=== PATIENT | male | born 1980 | race Caucasian/White ===

== ENCOUNTER → 2017-12-22 | Outpatient (CLI) | payer OTHER | LOC: M RAD 13:14 | DX: H93.12 Tinnitus, left ear (principal); H90.42 Sensorineural hearing loss, unilateral, left ear, with unrestricted hearing on the contralateral side ==

== ENCOUNTER → 2018-01-16 | Outpatient (CLI) | payer OTHER | LOC: M RAD 12:44 | DX: H93.12 Tinnitus, left ear (principal); H90.42 Sensorineural hearing loss, unilateral, left ear, with unrestricted hearing on the contralateral side; M17.11 Unilateral primary osteoarthritis, right knee | CPT/HCPCS: 70551 ==

== ENCOUNTER → 2018-02-03 | Outpatient (REF) | payer OTHER ==
[2018-02-03 17:54] LABS: APPEARANCE, BODY FLUID CLOUDY (CLEAR); CRYSTALS, BODY FLUID NONE SEEN (NONE SEEN); SOURCE, BODY FLUID RT KNEE; SOURCE, BODY FLUID CRYSTALS RT KNEE; SYNOVIAL FLUID COLOR YELLOW (YELLOW)
[2018-02-03 18:18] LABS: BF MONONUCLEAR CELL % 73.5 % (0-0); BF POLYMORPHONUCLEAR CELL % 26.5 % (0-0); RBC BODY FLUID < 2 10^3/uL (<2); WBC BODY FLUID 219 /uL (0-10)
[2018-02-03 18:19] LABS: BF DIFF IF INDICATED? YES (NO)
[2018-02-03 19:38] LABS: SOURCE, BODY FLUID GLUCOSE RT KNEE; SOURCE, BODY FLUID URIC ACID RT KNEE; URIC ACID, BODY FLUID 4.8 MG/DL (NOT ESTABLISHED)
[2018-02-04 11:08] LABS: BODY FLUID RHEUMATOID SCREEN NEGATIVE (NEGATIVE)
[2018-02-04 11:09] LABS: MUCIN CLOT TEST 4+ (4+)
[2018-02-08 09:18] LABS: LYME PCR FOR BODY FLUID Negative (Negative)
== END ==
LOC: M LAB REF 17:16
DX: M25.561 Pain in right knee (principal)
CPT/HCPCS: 82945

== ENCOUNTER 2018-02-11 12:30 | Emergency (ER) | payer OTHER ==
[2018-02-11] MEDS ORDERED: PANTOPRAZOLE 40MG INJ (PROTONIX) (C9113) IV (14:15)
[2018-02-11] MEDS ORDERED: KETOROLAC 30 MG/ML VIAL (J1885) IV (14:15)
[2018-02-11] MEDS ORDERED: NS 1,000 ML IV (14:15)
[2018-02-11 15:33] LABS: BASO % 0.5 % (0.0-1.0); EOS # 0.2 10^3/uL (0.0-0.50); EOS % 2.1 % (0.0-3.0); HEMATOCRIT 42.6 % (42.0-52.0); HEMOGLOBIN 14.8 g/dl (13.5-17.5); IMMATURE GRANULOCYTE % 0.2 % (0-3.0); LYMPH # 3.1 10^3/uL (1.5-4.5); LYMPH % 37.5 % (24.0-44.0); MEAN CORPUSCULAR HEMOGLOBIN 32.2 pg (27.0-33.0); MEAN CORPUSCULAR HGB CONC 34.7 g/dl (32.0-36.5); MEAN CORPUSCULAR VOLUME 92.6 fl (80.0-96.0); MONO # 0.5 10^3/uL (0.0-0.8); MONO % 5.6 % (0.0-5.0); NEUTROPHILS # 4.4 10^3/uL (1.8-7.7); NEUTROPHILS % 54.1 % (36.0-66.0); PLATELET COUNT, AUTOMATED 360 10^3/uL (150-450); RED CELL DISTRIBUTION WIDTH 11.4 % (11.5-14.5); WHITE BLOOD COUNT 8.2 10^3/uL (4.0-10.0)
[2018-02-11 15:44] LABS: PROTHROMBIN TIME 13.3 SECONDS (12.1-14.4)
[2018-02-11 15:53] LABS: ALBUMIN 4.5 GM/DL (3.2-5.2); ALBUMIN/GLOBULIN RATIO 1.36 (1.00-1.93); ALKALINE PHOSPHATASE 66 U/L (45-117); ALT/SGPT 37 U/L (12-78); ANION GAP 9 MEQ/L (8-16); AST/SGOT 17 U/L (7-37); BILIRUBIN,DIRECT 0.1 MG/DL (0.0-0.2); BILIRUBIN,TOTAL 0.4 MG/DL (0.2-1.0); BLOOD UREA NITROGEN 12 MG/DL (7-18); CALCIUM LEVEL 8.8 MG/DL (8.5-10.1); CARBON DIOXIDE LEVEL 28 MEQ/L (21-32); CHLORIDE LEVEL 106 MEQ/L (98-107); CREATININE FOR GFR 0.96 MG/DL (0.70-1.30); GLOMERULAR FILTRATION RATE > 60.0 (>60); GLUCOSE, FASTING 101 MG/DL (70-100); LIPASE 119 U/L (73-393); POTASSIUM SERUM 4.2 MEQ/L (3.5-5.1); SODIUM LEVEL 143 MEQ/L (136-145); TOTAL PROTEIN 7.8 GM/DL (6.4-8.2)
== END 2018-02-11 15:32 | disposition home or self-care (01) ==
LOC: M ED 12:30
DX: R10.9 Unspecified abdominal pain (principal); I10 Essential (primary) hypertension; Z87.891 Personal history of nicotine dependence; Z79.899 Other long term (current) drug therapy
CPT/HCPCS: 74176

== ENCOUNTER → 2019-05-31 | Outpatient (REF) | payer OTHER ==
[~2019-05-31] MED LIST: AMLO10TA5; LORA1TAB12; LOSA25TA14
[2019-05-31 19:00] LABS: BASO # 0.1 10^3/uL (0.0-0.2); BASO % 0.6 % (0.0-1.0); EOS # 0.1 10^3/uL (0.0-0.5); EOS % 1.6 % (0.0-3.0); HEMOGLOBIN 14.9 g/dl (13.5-17.5); LYMPH # 2.9 10^3/uL (1.5-5.0); LYMPH % 36.2 % (24.0-44.0); MEAN CORPUSCULAR HEMOGLOBIN 32.1 pg (27.0-33.0); MEAN CORPUSCULAR HGB CONC 33.9 g/dl (32.0-36.5); MEAN CORPUSCULAR VOLUME 94.8 fl (80.0-96.0); MONO # 0.5 10^3/uL (0.0-0.8); NEUTROPHILS # 4.4 10^3/uL (1.5-8.5); NEUTROPHILS % 55.2 % (36.0-66.0); PLATELET COUNT, AUTOMATED 326 10^3/uL (150-450); RED BLOOD COUNT 4.64 10^6/uL (4.30-6.10); WHITE BLOOD COUNT 7.9 10^3/uL (4.0-10.0)
[2019-05-31 19:14] LABS: ALBUMIN 4.4 GM/DL (3.2-5.2); ALT/SGPT 30 U/L (12-78); BILIRUBIN,TOTAL 0.5 MG/DL (0.2-1.0); BLOOD UREA NITROGEN 12 MG/DL (7-18); CALCIUM LEVEL 8.8 MG/DL (8.5-10.1); CARBON DIOXIDE LEVEL 30 MEQ/L (21-32); CHLORIDE LEVEL 104 MEQ/L (98-107); CREATININE FOR GFR 0.98 MG/DL (0.70-1.30); FREE T4 0.94 NG/DL (0.76-1.46); GLOMERULAR FILTRATION RATE > 60.0 (>60); GLUCOSE, FASTING 85 MG/DL (70-100); POTASSIUM SERUM 4.4 MEQ/L (3.5-5.1); SODIUM LEVEL 139 MEQ/L (136-145); TOTAL PROTEIN 7.6 GM/DL (6.4-8.2)
[2019-05-31 19:16] LABS: TOTAL 25(OH) VITAMIN D 22.9 NG/ML (30.0-100.0)
[2019-06-02 14:22] LABS: TESTOSTERONE FREE (DIRECT) 7.9 pg/mL (6.8-21.5)
== END ==
LOC: M SFHCADAM 16:50
PROVIDERS: ATTEND Family Medicine
DX: R53.82 Chronic fatigue, unspecified (principal)

== ENCOUNTER → 2021-02-25 | Outpatient (CLI) | payer OTHER ==
[~2021-02-25] MED LIST changes: +ALEV220T22 PO; -AMLO10TA5; +AMLO1TAB25; +AMLO1TAB25 PO; +D31000TA2 PO; +DOXY100T PO; +DOXY100T27 PO; +FISH1000 PO; +IBUP1TAB6 PO; -LORA1TAB12; +LORA1TAB4; +LOSA25TA14 PO; +MULTCHW12 PO
[2021-02-25 15:46] LABS: BASO % 0.6 % (0.0-1.0); EOS % 0.3 % (0.0-3.0); HEMATOCRIT 44.3 % (42.0-52.0); HEMOGLOBIN 14.7 g/dl (13.5-17.5); LYMPH # 0.9 10^3/uL (1.5-5.0); LYMPH % 12.8 % (24.0-44.0); MEAN CORPUSCULAR HEMOGLOBIN 30.8 pg (27.0-33.0); MEAN CORPUSCULAR HGB CONC 33.2 g/dl (32.0-36.5); MEAN CORPUSCULAR VOLUME 92.9 fl (80.0-96.0); MONO # 0.7 10^3/uL (0.0-0.8); MONO % 9.2 % (2.0-8.0); NEUTROPHILS # 5.5 10^3/uL (1.5-8.5); NEUTROPHILS % 76.7 % (36.0-66.0); PLATELET COUNT, AUTOMATED 254 10^3/uL (150-450); RED BLOOD COUNT 4.77 10^6/uL (4.30-6.10); WHITE BLOOD COUNT 7.2 10^3/uL (4.0-10.0)
--- NOTE | 2021-02-25 15:59 | REP ---
INDICATION: FEVER, UNSPECIFIED / LABS 1ST. COMPARISON: 01/27/2006 TECHNIQUE: PA and lateral FINDINGS: The superior mediastinal structures are midline. The cardiac silhouette is unremarkable in size, shape, and position. The diaphragmatic surfaces of the lungs are regular, and the costophrenic angles are clear. The pulmonary romero are clear. The imaged osseous structures are intact. IMPRESSION: There is no acute cardiopulmonary disease. <Electronically signed by Praneeth Kaur > 02/25/21 [id number]
[2021-02-25 16:19] LABS: ALBUMIN 4.1 GM/DL (3.2-5.2); BILIRUBIN,DIRECT 0.1 MG/DL (0.0-0.2); BILIRUBIN,TOTAL 0.4 MG/DL (0.2-1.0); TOTAL PROTEIN 7.7 GM/DL (6.4-8.2)
== END ==
LOC: M LAB 15:02
PROVIDERS: ATTEND Nurse Practitioner Family
DX: R50.9 Fever, unspecified (principal)

== ENCOUNTER 2021-02-26 16:34 | Observation (INO) | payer OTHER ==
[~2021-02-26] VITALS: Ht 180.3 cm; Wt 92.4 kg
[~2021-02-26 16:34] MED LIST changes: -ALEV220T22 PO; -AMLO1TAB25 PO; -D31000TA2 PO; -DOXY100T PO; -DOXY100T27 PO; -FISH1000 PO; -IBUP1TAB6 PO; -LOSA25TA14 PO; -MULTCHW12 PO
[2021-02-26] MEDS ORDERED: NS 1,000 ML IV ONE ×2 (20:25→22:40)
[2021-02-26] MEDS ORDERED: KETOROLAC 30 MG/ML 1ML VIAL IV ONE (20:25)
[2021-02-26] MEDS ORDERED: ACETAMINOPHEN TAB 650MG DOSE (2X325MG) PO ONE (20:30)
[2021-02-26] MEDS ORDERED: LOSARTAN 25 MG TAB PO SCH (21:00)
[2021-02-26 21:03] LABS: BASO % 0.3 % (0.0-1.0); HEMATOCRIT 39.7 % (42.0-52.0); HEMOGLOBIN 13.6 g/dl (13.5-17.5); LYMPH # 0.9 10^3/uL (1.5-5.0); LYMPH % 9.6 % (24.0-44.0); MEAN CORPUSCULAR HEMOGLOBIN 30.9 pg (27.0-33.0); MEAN CORPUSCULAR HGB CONC 34.3 g/dl (32.0-36.5); MEAN CORPUSCULAR VOLUME 90.2 fl (80.0-96.0); MONO # 0.9 10^3/uL (0.0-0.8); MONO % 8.9 % (2.0-8.0); NEUTROPHILS # 7.8 10^3/uL (1.5-8.5); NEUTROPHILS % 80.9 % (36.0-66.0); PLATELET COUNT, AUTOMATED 238 10^3/uL (150-450); WHITE BLOOD COUNT 9.6 10^3/uL (4.0-10.0)
[2021-02-26] MEDS ORDERED: DOXY100T PO (21:05)
[2021-02-26 22:09] LABS: ALBUMIN 3.7 GM/DL (3.2-5.2); ALT/SGPT 50 U/L (12-78); BILIRUBIN,DIRECT 0.2 MG/DL (0.0-0.2); BILIRUBIN,TOTAL 0.6 MG/DL (0.2-1.0); BLOOD UREA NITROGEN 11 MG/DL (7-18); CARBON DIOXIDE LEVEL 25 MEQ/L (21-32); CHLORIDE LEVEL 102 MEQ/L (98-107); CREATININE FOR GFR 0.96 MG/DL (0.70-1.30); GLOMERULAR FILTRATION RATE > 60.0 (>60); GLUCOSE, FASTING 115 MG/DL (70-100); NT-PRO BNP 48 PG/ML (<125); POTASSIUM SERUM 4.4 MEQ/L (3.5-5.1); SODIUM LEVEL 135 MEQ/L (136-145); THYROID STIMULATING HORMONE 0.698 uIU/ML (0.358-3.740); THYROXINE (T4) 7.2 UG/DL (4.5-12.0); TOTAL PROTEIN 7.3 GM/DL (6.4-8.2)
--- NOTE | 2021-02-26 22:20 | REPVR ---
PROCEDURE INFORMATION: Exam: XR Chest Exam date and time: 02/26/2021 9:16 PM Age: 40 years old Clinical indication: Other: Fever TECHNIQUE: Imaging protocol: XR of the chest. Views: 1 view. COMPARISON: 1. [place] Chest, 2 view PA, Lat 2021-02-25 15:[address] ABD PELVIS W/O CONTRAST 2018-02-11 14:06 FINDINGS: Lungs: Unremarkable. No consolidation. Pleural spaces: Unremarkable. No pleural effusion. No pneumothorax. Heart/Mediastinum: Unremarkable. No cardiomegaly. Bones/joints: Unremarkable. IMPRESSION: No acute findings. Electronically signed by: Perez Forbes On 02/26/2021 22:19:53 PM
[2021-02-26 22:29] LABS: MONO REFLEX EBV COMP NEGATIVE (NEGATIVE)
[2021-02-26 22:31] LABS: ERYTHROCYTE SEDIMENTATION RATE 43 mm/hr (0-15)
--- NOTE | 2021-02-26 22:31 | REPVR ---
PROCEDURE INFORMATION: Exam: CT Cervical Spine Without Contrast Exam date and time: 02/26/2021 10:17 PM Age: 40 years old Clinical indication: Other: Neck pain TECHNIQUE: Imaging protocol: Computed tomography images of the cervical spine without contrast. Radiation optimization: All CT scans at this facility use at least one of these dose optimization techniques: automated exposure control; mA and/or kV adjustment per patient size (includes targeted exams where dose is matched to clinical indication); or iterative reconstruction. COMPARISON: 1. MRI-Brain without Contrast 2018-01-16 14:21 2. CR PORTABLE CHEST X-RAY 2021-02-26 20:36 FINDINGS: Bones/joints: No acute fracture. Normal alignment. Discs/Spinal canal/Neural foramina: No significant disc protrusion. No severe spinal canal stenosis. No significant neural foraminal narrowing. Lungs: Lung apices are normal. Soft tissues: Unremarkable. IMPRESSION: No acute findings. Electronically signed by: Perez Forbes On 02/26/2021 22:31:28 PM
--- NOTE | 2021-02-26 22:33 | REPVR ---
PROCEDURE INFORMATION: Exam: CT Head Without Contrast Exam date and time: 02/26/2021 10:17 PM Age: 40 years old Clinical indication: Fever and other: Head ache TECHNIQUE: Imaging protocol: Computed tomography of the head without contrast. Radiation optimization: All CT scans at this facility use at least one of these dose optimization techniques: automated exposure control; mA and/or kV adjustment per patient size (includes targeted exams where dose is matched to clinical indication); or iterative reconstruction. COMPARISON: MRI-Brain without Contrast 2018-01-16 14:21 FINDINGS: Brain: Normal. No hemorrhage. Unremarkable white matter. No mass effect. Cerebral ventricles: No ventriculomegaly. Paranasal sinuses: Visualized sinuses are unremarkable. No fluid levels. Mastoid air cells: Visualized mastoid air cells are well aerated. Bones/joints: Unremarkable. No acute fracture. Soft tissues: Unremarkable. IMPRESSION: No acute intracranial abnormality. Electronically signed by: Perez Forbes On 02/26/2021 22:32:51 PM
[2021-02-26] MEDS: HYDROMORPHONE HCL 0.5 MG/ 0.5 ML SYRINGE (J1170 PER 1) IV PRN (22:46)
[2021-02-26 22:53] LABS: INR 1.15
[2021-02-26 22:54] LABS: PARTIAL THROMBOPLASTIN TIME 31.2 SECONDS (24.2-38.5)
[2021-02-27] MEDS: HYDROMORPHONE HCL 0.5 MG/ 0.5 ML SYRINGE (J1170 PER 1) IV PRN (00:07)
[2021-02-27] MEDS ORDERED: FISH1000 PO (00:49)
[2021-02-27] MEDS ORDERED: MULTCHW12 PO (00:49)
[2021-02-27] MEDS ORDERED: ALEV220T22 PO (00:49)
[2021-02-27] MEDS ORDERED: LOSA25TA14 PO (00:49)
[2021-02-27] MEDS ORDERED: D31000TA2 PO (00:49)
[2021-02-27] MEDS ORDERED: IBUP1TAB6 PO (00:49)
[2021-02-27] MEDS ORDERED: DOXY100T27 PO (00:49)
[2021-02-27] MEDS ORDERED: AMLO1TAB25 PO (00:49)
[2021-02-27] MEDS ORDERED: cefTRIAXone SOD 2 GM VIAL (J0696 PER 250MG) IM SCH (01:00)
[2021-02-27] MEDS ORDERED: ONDANSETRON 4MG/2ML VIAL IV PRN (01:00)
[2021-02-27] MEDS ORDERED: MAALOX 30 ML SUSP *UDC PO PRN (01:00)
[2021-02-27] MEDS ORDERED: MOM 30ML SUSPENSION UDC PO PRN (01:00)
--- NOTE | 2021-02-27 01:16 | HPEPDOC ---
[facility] Medical History & Physical Date of Admission Feb 27, 2021 Date of Service: Feb 27, 2021 Primary Care Physician: AROLDO WALL DO Attending Physician: BARBARA GONZALEZ MD History and Physical CHIEF COMPLAINT: Fever, muscle aches and neck pain HISTORY OF PRESENT ILLNESS: Mr. Enriquez is a 40-year-old male who presented to the ER with complaints of 4 days of fever, malaise, neck pain and nausea. He states he is basically been bedridden for the last 4 days. He was seen in urgent care on Tuesday with a history of a tick bite about 2 weeks ago. He says the tick was only attached for about 8 hours. He did have an area of redness on the left inner thigh, but that area really wasn't bothersome. Labs were drawn at urgent care and sent out for diagnosis of possible Lyme disease. He was also seen at another facility yesterday and repeat labs were done. He said he was told it would be about a week before he got any results back. He was started on empiric doxycycline yesterday and took 2 doses. John and that the doxycycline "really messed up my gut". He had had nausea prior to starting the doxycycline but he said that that medication seemed to make it much worse. He has been complaining of neck pain for about 2-4 weeks, but states the pain has been much worse over the last 4 days with the fever. He does not seem to have any nuchal rigidity but does complain of increased pain when his chin touches his chest. He says the pain seems to shoot all the way down his spine. On initial evaluation this evening. He had a temp of 101.6. Labs were relatively unremarkable with white blood cell count 9.6, however, neutrophils were elevated at 80.9. Sodium was decreased at 135, and glucose was elevated at 115, with no history of diabetes. CRP was increased at 14. Portable chest x-ray was unremarkable. CT of the head was negative as well as CT of the cervical spine. Lumbar puncture was attempted in the ER, but no spinal fluid was obtained. PAST MEDICAL HISTORY: 1. Hypertension. 2. Left ear tinnitus. 3. Osteoarthritis, knees. 4. Anxiety, which patient denies. 5. Depression, which patient denies PAST SURGICAL HISTORY: 1. Right knee arthroscopy. 2. Right hand surgery as a child SOCIAL HISTORY: Tobacco use: Patient quit smoking 2 years ago ETOH: Denies Illicit drug use: Denies Patient lives with: Lives with his parents FAMILY HISTORY: Patient's mother, 64 years old and patient denies that she has any significant medical history. His father has a history of lung cancer. REVIEW OF SYSTEMS: Complete 10 point review systems is negative except as noted above PHYSICAL EXAMINATION: Patient is seen in the ER, sitting up on the stretcher.. He is alert and oriented x 3. HEENT is WNL. Neck is supple, although patient complains of pain touching chin to chest.. There is no obvious nuchal rigidity. Lungs are clear to auscultation. Heart regular rate and rhythm without murmur. Abdomen is soft, non-tender to palpation with bowel sounds positive. Extremities with good ROM and strength equal bilaterally. Left inner thigh with bull's-eye appearance, erythema, which is outlined. Patient states that erythema was not present at about 5:30 this evening. States the area is "itchy". Some edema noted at the site. Pedal pulses are positive. Skin is warm and dry with no other obvious rash or lesion. Neuro: grossly intact. Psych: He is pleasant and cooperative ASSESSMENT AND PLAN: 1. Fever probably secondary to Lyme disease with bull's-eye pattern left inner thigh. We'll continue the patient on Rocephin as he has not tolerated doxycycli ne at home. We'll add antipyretics and continue IV fluids. We'll also have antiemetics available. Add pain medications for use as needed. Labs pending. 2. Hypertension, essential. Continue amlodipine and losartan. Monitor with routine vital signs and adjust medications as needed based on trends. 3. Neck pain secondary to acute infection with Lyme disease. Lumbar puncture unsuccessful in the ER. Do not believe any further attempts at lumbar puncture are needed at this time, but patient could be referred to IR in the future if it's felt necessary. 4. Hyponatremia. Continue gentle IV fluids. 5. DVT prophylaxis. Lovenox. CODE STATUS: CODE STATUS was discussed with patient. He desires to be considered full code. He states his parents would act as his circuits. If he were unable to make his decisions. Patient is considered high risk of further deterioration including possible development of sepsis or septic shock. He is admitted for close observation and further evaluation and expected to remain at least one midnight. Vital Signs Vital Signs Date Time Temp Pulse Resp B/P (MAP) Pulse Ox O2 Delivery O2 Flow Rate FiO2 02/27/21 00:17 20 02/26/21 22:56 Room Air 02/26/21 22:54 99.2 70 133/77 (95) 96 Laboratory Data Labs 24H Laboratory Tests 2 02/26/21 20:33: Immature Granulocyte % (Auto) 0.3, Neutrophils (%) (Auto) 80.9H, Lymphocytes (%) (Auto) 9.6L, Monocytes (%) (Auto) 8.9H, Eosinophils (%) (Auto) 0.0, Basophils (%) (Auto) 0.3, Neutrophils # (Auto) 7.8, Lymphocytes # (Auto) 0.9L, Monocytes # (Auto) 0.9H, Eosinophils # (Auto) 0.0, Basophils # (Auto) 0.0, Nucleated Red Blood Cells % (auto) 0.0, Erythrocyte Sedimentation Rate 43H, Urine Color YELLOW, Urine Appearance CLEAR, Urine pH 6.0, Urine Specific [place] 1.013, Urine Protein NEGATIVE, Urine Glucose (UA) NEGATIVE, Urine Ketones NEGATIVE, Urine Blood NEGATIVE, Urine Nitrite NEGATIVE, Urine Bilirubin NEGATIVE, Urine Urobilinogen 0.2, Urine Leukocyte Esterase NEGATIVE, Urine WBC (Auto) 1, Urine RBC (Auto) 0, Urine Hyaline Casts (Auto) 0, Urine Bacteria (Auto) NEGATIVE, Urine Squamous Epithelial Cells 0, Urine Mucus (Auto) SMALL, Urine Sperm (Auto) , Anion Gap 8, Glomerular Filtration Rate > 60.0, Lactic Acid Level 0.9, Calcium Level 9.0, Total Bilirubin 0.6, Direct Bilirubin 0.2, Aspartate Amino Transf (AST/SGOT) 26, Alanine Aminotransferase (ALT/SGPT) 50, Alkaline Phosphatase 74, C-Reactive Protein, Quantitative 14.00H, [id number]-Izd-A-Type Natriuretic Peptide 48, Total Protein 7.3, Albumin 3.7, Albumin/Globulin Ratio 1.0, Thyroid Stimulating Hormone (TSH) 0.698, Thyroxine (T4) 7.2, Monoscreen NEGATIVE 02/26/21 22:35: Prothrombin Time 15.0H, Prothromb Time International Ratio 1.15, Activated Partial Thromboplast Time 31.2 CBC/BMP Laboratory Tests 02/26/21 20:33 Microbiology Microbiology 02/26/21 Blood Culture, Received Pending 02/26/21 Respiratory Virus Panel (PCR) (EMMETT) - Final, Complete 02/26/21 Blood Culture, Received Pending Home Medications Scheduled Amlodipine Besylate (Amlodipine Besylate) 10 Mg Tablet, 10 MG PO QHS Cholecalciferol (Vitamin D3) (Vitamin D3) 1,000 Unit Tablet, 500 UNITS PO DAILY Doxycycline Monohydrate (Doxycycline Monohydrate) 100 Mg Tablet, 100 MG PO BID STARTED ON 02/25/21 Folic Acid/Multivit-Min/Lutein (Multi-Vitamin Gummies) 1 Each Tab.chew, 1 CHW PO DAILY Losartan Potassium (Losartan Potassium) 25 Mg Tablet, 25 MG PO QHS [place]-3 Fatty Acids/Fish Oil (Fish Oil 1,000 mg Capsule) 1 Each Capsule, 1,000 MG PO DAILY Scheduled PRN Ibuprofen (Ibuprofen) 600 Mg Tablet, 600 MG PO Q6H PRN for FEVER Naproxen Sodium (Aleve) 220 Mg Tablet, 220 MG PO BID PRN for FEVER Allergies Coded Allergies: No Known Allergies (Unverified , 02/26/21) A-FIB/CHADSVASC A-FIB History Current/History of A-Fib/PAF?: No EDUARDA MCELROY Feb 27, 2021 01:16
[2021-02-27] MEDS ORDERED: cefTRIAXone SOD 2 GM in D5W MINI-BAG PLUS 50 ML IV SCH (03:00)
[2021-02-27] MEDS: NS 1,000 ML IV SCH ×2 (04:02→12:49)
[2021-02-27 04:17] VITALS: BP 113/69
[2021-02-27] MEDS: ACETAMINOPHEN TAB 650MG DOSE (2X325MG) PO PRN ×2 (04:26→09:25)
[2021-02-27 06:32] LABS: MEAN CORPUSCULAR HEMOGLOBIN 30.8 pg (27.0-33.0); MEAN CORPUSCULAR HGB CONC 33.3 g/dl (32.0-36.5); MEAN CORPUSCULAR VOLUME 92.3 fl (80.0-96.0); PLATELET COUNT, AUTOMATED 201 10^3/uL (150-450); WHITE BLOOD COUNT 7.8 10^3/uL (4.0-10.0)
[2021-02-27 07:00] LABS: BLOOD UREA NITROGEN 11 MG/DL (7-18); CALCIUM LEVEL 7.8 MG/DL (8.5-10.1); CARBON DIOXIDE LEVEL 27 MEQ/L (21-32); CHLORIDE LEVEL 105 MEQ/L (98-107); CREATININE FOR GFR 0.92 MG/DL (0.70-1.30); GLOMERULAR FILTRATION RATE > 60.0 (>60); GLUCOSE, FASTING 159 MG/DL (70-100); MAGNESIUM LEVEL 2.1 MG/DL (1.8-2.4); POTASSIUM SERUM 4.1 MEQ/L (3.5-5.1); SODIUM LEVEL 137 MEQ/L (136-145)
[2021-02-27 08:47] LABS: HIV 1&2 SCREEN CENTAUR NEGATIVE (NEGATIVE)
[2021-02-27] MEDS: ENOXAPARIN 40MG/0.4ML SYRINGE (J1650 PER 10MG) SC SCH (09:00)
[2021-02-27] MEDS: LOSARTAN 25 MG TAB PO SCH (09:00)
[2021-02-27] MEDS: NORCO, ANEXSIA 5/325MG TABLET (HYDROcodone/ACETAMINOPHEN) PO PRN ×2 (12:48→18:35)
[2021-02-27] MEDS: LACTOBACILLUS ACIDOPHILUS CAP (BACID) PO SCH (12:49)
--- NOTE | 2021-02-27 13:11 | IPNPDOC ---
Subjective Date Seen The patient was seen on 02/27/21. Subjective Chief Complaint/HPI Mr. Enriquez is a 40-year-old male who presented febrile 101.6 to the ER with complaints fever, malaise, neck pain and nausea. He describes feeling so poorly that he has stayed in bed for several days. He reports vague symptoms for the past 2 weeks since having a tick bite on February 12, but specifically fever nausea neck pain past 4 days. He was seen at urgent care and PCP past week and given his symptoms and history was started on empiric doxycycline and sample sent out for Lyme disease. He reports the tick was only attached for roughly 8 hours. Unfortunately, patient reports that his nausea worsened with taking doxy and as his neck pain increased he came to ED. He denies any physical trauma to upper body. CT head and C-spine were completed and found nonacute. Lumbar puncture unsuccessful in ED. Chest x-ray nonacute. UA negative. Today, patient reports that he feels unwell but does feel he could attempt to eat breakfast which is an improvement in comparison to his poor p.o. prior to admission. He still endorses a moderate aching sensation from head down back he also reports that yesterday where he had the tickbite on his left inner thigh; the circular redness has is new the past day. He is concerned regarding going home when he feels so poorly and weak and uncomfortable when he has fever spikes. He reports sensation of feverishness all night. A.m. vital signs reveal low-grade temperature 99 Fahrenheit General: Reports: Fatigue; Denies: Normal Appetite Constitutional: Reports: Chills, Fever, Malaise, Fatigue Eyes: Denies: Pain, Vision change ENT: Denies: Head Aches, Ear Pain, Dysphagia Skin: Reports: Rash Pulmonary: Denies: Dyspnea, Cough Cardiovascular: Reports: Palpitations Gastrointestinal: Reports: Nausea; Denies: Vomiting, Abdominal Pain, Diarrhea, Constipation, Melena, Hematochezia Genitourinary: Denies: Dysuria, Frequency, Incontinence, Retention Hematologic: Denies: Bruising, Bleeding Excessively Musculoskeletal: Reports: Neck Pain, Back Pain, Muscle Pain Neurological: Reports: Other Symptoms (Headache); Denies: Weakness, Numbness, Change in speech, Confusion Psych: Reports: Mood Normal, Anxiety; Denies: Depression, Memory Issues Objective Physical Examination General Exam: Positive: Alert, No Acute Distress Eye Exam: Positive: PERRLA, Conjunctiva & lids normal, EOMI; Negative: Sclera icteric ENT Exam: Positive: Atraumatic, Mucous membr. moist/pink, Pharynx Normal Neck Exam: Positive: Supple; Negative: JVD, thyromegaly Chest Exam: Positive: Clear to auscultation, Normal air movement Heart Exam: Positive: Rate Normal, Regular Rhythm, Normal S1, Normal S2; Negative: Murmurs, Rubs Telemetry: Positive: No significant arrhythmia Abdomen Exam: Positive: Normal bowel sounds, Soft; Negative: Tenderness, Hepatospenomegaly Extremity Exam: Positive: Normal pulses; Negative: Clubbing, Cyanosis, Edema Skin Exam: Positive: Rash (Circular pattern rash, " bull's-eye", of left inner thigh; black line trace marking present; redness within line) Psych Exam: Positive: Mental status NL, Anxiety, Oriented x 3 RAD Interpretation STUDY: CXR Rad Actions: Report Reviewed RAD Interpretation: Normal STUDY: CT head Rad Actions: Report Reviewed RAD Interpretation: Normal STUDY: CT C-spine Rad Actions: Report Reviewed RAD Interpretation: Normal Assessment /Plan Plan/VTE VTE Prophylaxis Ordered?: Yes Plan IVF: Continue Diet: Continue Current Activity: Continue Current Medications: Other Med: (Doxy trial) Diagnostics: Repeat Labs in AM, Obtain Cultures Anticipated Discharge: Home 1. Fever likely secondary to Lyme disease given recent tick bite and rash: - Currently remains afebrile - Reported Lyme test not found as an outpatient; additional workup for tick born illness remain pending / repeat Lyme serology pending - Discussed with ID - Given patient did not tolerate doxy p.o. but given the risk-benefit profile of probable Lyme disease will trial Doxy IV with antiemetics and monitor response. - If patient unable to tolerate can transition to amoxicillin. - Plan for symptom management and supportive care; Encourage p.o. intake and rest. 2. Hypertension,: Monitor blood pressure in setting of infection. Continue home medications amlodipine and losartan. 3. Neck pain - possibly 2/2 acute infection with Lyme disease, less likely 2/2 meningitis - Lumbar puncture unsuccessful in the ER. - Spinal examination without pinpoint tenderness. - Patient is able to touch chin to chest. - Patient attempted LP site without redness swelling abscess or continuous drainage. - Patient does not want to pursue any further LP 4. Hyponatremia. Resolved sodium 137, continue gentle IV fluids. 5. DVT prophylaxis. Lovenox. Disposition Home VS, I&O, 24H, Don Vital Signs/I&O Vital Signs Date Time Temp Pulse Resp B/P (MAP) Pulse Ox O2 Delivery O2 Flow Rate FiO2 02/27/21 09:19 66 116/69 02/27/21 04:17 99.0 18 96 Room Air I&O- Last 24 Hours up to 6 AM 02/27/21 06:00 Intake Total 2350 ml Balance 2350 ml Laboratory Data 24H LABS Laboratory Tests 2 02/26/21 20:33: Immature Granulocyte % (Auto) 0.3, Neutrophils (%) (Auto) 80.9H, Lymphocytes (%) (Auto) 9.6L, Monocytes (%) (Auto) 8.9H, Eosinophils (%) (Auto) 0.0, Basophils (%) (Auto) 0.3, Neutrophils # (Auto) 7.8, Lymphocytes # (Auto) 0.9L, Monocytes # (Auto) 0.9H, Eosinophils # (Auto) 0.0, Basophils # (Auto) 0.0, Nucleated Red Blood Cells % (auto) 0.0, Erythrocyte Sedimentation Rate 43H, Urine Color YELL OW, Urine Appearance CLEAR, Urine pH 6.0, Urine Specific [place] 1.013, Urine Protein NEGATIVE, Urine Glucose (UA) NEGATIVE, Urine Ketones NEGATIVE, Urine Blood NEGATIVE, Urine Nitrite NEGATIVE, Urine Bilirubin NEGATIVE, Urine Urobilinogen 0.2, Urine Leukocyte Esterase NEGATIVE, Urine WBC (Auto) 1, Urine RBC (Auto) 0, Urine Hyaline Casts (Auto) 0, Urine Bacteria (Auto) NEGATIVE, Urine Squamous Epithelial Cells 0, Urine Mucus (Auto) SMALL, Urine Sperm (Auto) , Anion Gap 8, Glomerular Filtration Rate > 60.0, Lactic Acid Level 0.9, Calcium Level 9.0, Total Bilirubin 0.6, Direct Bilirubin 0.2, Aspartate Amino Transf (AST/SGOT) 26, Alanine Aminotransferase (ALT/SGPT) 50, Alkaline Phosphatase 74, C-Reactive Protein, Quantitative 14.00H, SK-Fnz-[id number]-Type Natriuretic Peptide 48, Total Protein 7.3, Albumin 3.7, Albumin/Globulin Ratio 1.0, Thyroid Stimulating Hormone (TSH) 0.698, Thyroxine (T4) 7.2, Monoscreen NEGATIVE, HIV Antigen/Antibody Combo Qual NEGATIVE 02/26/21 22:35: Prothrombin Time 15.0H, Prothromb Time International Ratio 1.15, Activated Partial Thromboplast Time 31.2 02/27/21 05:59: Nucleated Red Blood Cells % (auto) 0.0, Anion Gap 5L, Glomerular Filtration Rate > 60.0, Calcium Level 7.8L, Magnesium Level 2.1, Procalcitonin 0.25 CBC/BMP Laboratory Tests 02/26/21 20:33 02/27/21 05:59 Microbiology Microbiology 02/26/21 Blood Culture, Received Pending 02/26/21 Respiratory Virus Panel (PCR) (EMMETT) - Final, Complete 02/26/21 Blood Culture, Received Pending Attending Note Attending Note I, Christina Krishna, have independently examined this patient and performed my own physical exam, as well as reviewed the documentation and edited where necessary. SYEDA JOHNSTON NP Feb 27, 2021 11:22 CHRISTINA KRISHNA MD Feb 27, 2021 13:47
[2021-02-27 14:00] VITALS: BP 129/77
[2021-02-27] MEDS ORDERED: DOXYCYCLINE HYCLATE 100 MG in D5W MINI-BAG PLUS 100 ML IV SCH (21:00)
[2021-02-27] MEDS: KETOROLAC 30 MG/ML 1ML VIAL IV PRN (21:10)
[2021-02-27 22:00] VITALS: BP 128/77
[2021-02-28] MEDS: NS 1,000 ML IV SCH ×2 (00:24→11:46)
[2021-02-28 05:42] VITALS: BP 130/73
[2021-02-28 06:39] LABS: HEMATOCRIT 36.6 % (42.0-52.0); MEAN CORPUSCULAR HEMOGLOBIN 30.2 pg (27.0-33.0); MEAN CORPUSCULAR HGB CONC 32.8 g/dl (32.0-36.5); PLATELET COUNT, AUTOMATED 217 10^3/uL (150-450); RED BLOOD COUNT 3.98 10^6/uL (4.30-6.10)
[2021-02-28 07:08] LABS: BLOOD UREA NITROGEN 10 MG/DL (7-18); CALCIUM LEVEL 8.3 MG/DL (8.5-10.1); CARBON DIOXIDE LEVEL 25 MEQ/L (21-32); CHLORIDE LEVEL 109 MEQ/L (98-107); CREATININE FOR GFR 0.73 MG/DL (0.70-1.30); GLOMERULAR FILTRATION RATE > 60.0 (>60); GLUCOSE, FASTING 97 MG/DL (70-100); MAGNESIUM LEVEL 2.3 MG/DL (1.8-2.4); POTASSIUM SERUM 4.4 MEQ/L (3.5-5.1); SODIUM LEVEL 141 MEQ/L (136-145)
[2021-02-28 07:15] LABS: ATYPICAL LYMPH 4 % (0-5); EOSINOPHILS 3 % (0-3); LYMPHOCYTES 35 % (16-44); MONOCYTES 15 % (0-5); NEUTROPHILS 42 % (28-66)
[2021-02-28 07:18] LABS: PLATELET ESTIMATE NORMAL (NORMAL)
[2021-02-28] MEDS: KETOROLAC 30 MG/ML 1ML VIAL IV PRN (07:50)
[2021-02-28 08:00] VITALS: BP 128/68
[2021-02-28 09:00] VITALS: BP 128/68
[2021-02-28] MEDS: ENOXAPARIN 40MG/0.4ML SYRINGE (J1650 PER 10MG) SC SCH (09:00)
[2021-02-28] MEDS: LOSARTAN 25 MG TAB PO SCH (09:00)
[2021-02-28] MEDS ORDERED: DOXYCYCLINE HYCLATE 100MG TABLET PO SCH (09:00)
[2021-02-28] MEDS: NORCO, ANEXSIA 5/325MG TABLET (HYDROcodone/ACETAMINOPHEN) PO PRN (09:14)
[2021-02-28] MEDS: LACTOBACILLUS ACIDOPHILUS CAP (BACID) PO SCH (09:54)
[2021-02-28] MEDS ORDERED: RISATAB3 PO (11:54)
[2021-02-28] MEDS ORDERED: HYDR-3715 PO (11:54)
--- NOTE | 2021-02-28 13:15 | DS.PDOC ---
Discharge Summary General Date of Admission Feb 26, 2021 at 16:35 Date of Discharge 02/28/2021 Discharge Summary PROCEDURES PERFORMED DURING STAY: [None]. ADMITTING DIAGNOSES / DISCHARGE DIAGNOSES: Fever - likely 2/2 Lyme disease, possibly other tick related infections, unlikely 2/2 meningitis HTN s/p Neck pain - possibly 2/2 acute infection with Lyme disease / meningismus, less likely 2/2 meningitis s/p Hyponatremia DVT prophylaxis COMPLICATIONS/CHIEF COMPLAINT: Fever HISTORY OF PRESENT ILLNESS: Patient is a 40-year-old male with a PMHx of HTN, OA (of knees), Reported Anxiety / Depression (patient denies), who presented to the hospital with complaints of fevers, generalized body aches, nausea. Patient reported that on February 12, he was bitten by a tick his left thigh. Was seen in [facility] and had a lyme screen completed there that was reported negative. Patient subsequently follow-up with his primary care provider who had worked him up for other tick related infections and prescribed doxycycline. Patient had 2 doses of doxycycline and began to experience nausea, upset stomach and came to the ER for further evaluation. In the emergency room, patient was found to have a fever of 101.6F. patient was admitted to the hospital service for further evaluation and treatment. In the emergency room, patient had an LP attempted but was unsuccessful. HOSPITAL COURSE: Fever - likely 2/2 Lyme disease, possibly other tick related infections, unlikely 2/2 meningitis - Currently, patient feels better and he denies any muscle aches or any significant neck stiffness - Physicals without any neck rigidity - Patient has been afebrile over the last 24 hours - No leukocytosis; CRP has been trending down - Tickborne illness serology remains pending - Case was discussed with infectious disease - will continue with doxycycline if tolerated as it provides coverage for other tick related infections - s/p Ceftriaxone IV / Doxycycline IV; patient has been able to tolerate doxycycline orally - Will c/w Doxycycline PO - Will have outpatient follow-up with primary care provider, and infectious disease within the next 5 days HTN - BP well controlled - c/w Amlodipine / Losartan s/p Neck pain - possibly 2/2 acute infection with Lyme disease / meningismus, less likely 2/2 meningitis - Lumbar puncture unsuccessful in the ER - Patient is able to touch chin to chest - Physical does not reveal any positive Kernig / Brudzinski signs - Patient attempted LP; site is clean without redness / swelling / drainage - Patient does not want to pursue any further LP s/p Hyponatremia DVT prophylaxis - c/w Lovenox DISCHARGE MEDICATIONS: Please see below. ALLERGIES: Please see below. PHYSICAL EXAMINATION ON DISCHARGE: VITAL SIGNS: Please see below. Vitals (See below) General: Lying in bed, appears comfortable, AAOx3 HEENT: NC, AT CVS: RRR, +S1S2 Lungs: Fair air entry b/l, no wheezing / rales / rhonchi Abdomen: Soft, ND, NT Extremities: - Edema, - Calf tenderness LABORATORY DATA: Please see below. IMAGING: ACTIVITY: [As tolerated]. DISCHARGE PLAN: Follow up with PCP and ID within 5 days Remain compliant with treatment plan and medications Return to the ER if you experience any problems DISPOSITION: Home DISCHARGE CONDITION: [Stable]. TIME SPENT ON DISCHARGE: 25 minutes Vital Signs/I&Os Vital Signs Date Time Temp Pulse Resp B/P (MAP) Pulse Ox O2 Delivery O2 Flow Rate FiO2 02/28/21 09:44 18 02/28/21 09:00 128/68 02/28/21 09:00 60 02/28/21 08:00 95.3 97 Room Air I&O- Last 24 Hours up to 6 AM 02/28/21 06:00 Intake Total 770 ml Output Total 1000 ml Balance -230 ml Laboratory Data Labs 24H Laboratory Tests 2 02/28/21 06:06: Neutrophils (%) (Auto) , Nucleated Red Blood Cells % (auto) 0.0, Neutrophils 42, Band Neutrophils 1, Lymphocytes (Manual) 35, Monocytes (Manual) 15H, Eosinophils (Manual) 3, Atypical Lymphocytes 4, Platelet Estimate NORMAL, Anion Gap 7L, Glomerular Filtration Rate > 60.0, Calcium Level 8.3L, Magnesium Level 2.3, C-Reactive Protein, Quantitative 10.40H CBC/BMP Laboratory Tests 02/28/21 06:06 Microbiology Microbiology 02/26/21 Blood Culture - Preliminary, Resulted No growth after 24 hours . All specim... 02/26/21 Respiratory Virus Panel (PCR) (EMMETT) - Final, Complete 02/26/21 Blood Culture - Preliminary, Resulted No growth after 24 hours . All specim... Discharge Medications Scheduled Amlodipine Besylate (Amlodipine Besylate) 10 Mg Tablet, 10 MG PO QHS, (Reported) Cholecalciferol (Vitamin D3) (Vitamin D3) 1,000 Unit Tablet, 500 UNITS PO DAILY, (Reported) Doxycycline Monohydrate (Doxycycline Monohydrate) 100 Mg Tablet, 100 MG PO BID, (Reported) STARTED ON 02/25/21 Folic Acid/Multivit-Min/Lutein (Multi-Vitamin Gummies) 1 Each Tab.chew, 1 CHW PO DAILY, (Reported) L.acidoph/L.bulg/B.bif/S.therm (Jennifer-Bid Caplet) 1 Each Tablet, 1 EA PO DAILY Losartan Potassium (Losartan Potassium) 25 Mg Tablet, 25 MG PO QHS, (Reported) [place]-3 Fatty Acids/Fish Oil (Fish Oil 1,000 mg Capsule) 1 Each Capsule, 1,000 MG PO DAILY, (Reported) Scheduled PRN Hydrocodone/Acetaminophen (Hydrocodone-Acetamin 5-325 mg) 1 Each Tablet, 1 TAB PO Q6HP PRN for PAIN 8-10 Ibuprofen (Ibuprofen) 600 Mg Tablet, 600 MG PO Q6H PRN for FEVER, (Reported) Naproxen Sodium (Aleve) 220 Mg Tablet, 220 MG PO BID PRN for FEVER, (Reported) Allergies Coded Allergies: No Known Allergies (Unverified , 02/26/21) BRIAN KRISHNA MD Feb 28, 2021 13:15
[2021-03-03 17:07] LABS: EBV AB TO NUCLEAR ANTIGEN >600.0 U/mL (0.0-17.9); EBV VIRAL CAPSID AG IgM <36.0 U/mL (0.0-35.9); Lyme Disease IgG/IgM Antibodie <0.91 ISR (0.00-0.90); Lyme Disease IgM Ab Quantitati <0.80 index (0.00-0.79)
== END 2021-02-28 13:00 | disposition home or self-care (01) ==
LOC: M ED 16:34 → M ED INP 16:35 → M MS5PR 02-27 03:19 → M ED INP 02-27 03:24 → M MS5PR 02-27 03:53
PROVIDERS: ADMIT Internal Medicine; ATTEND Internal Medicine
DX: R50.9 Fever, unspecified (principal); A69.20 Lyme disease, unspecified; I10 Essential (primary) hypertension; M17.0 Bilateral primary osteoarthritis of knee; E87.1 Hypo-osmolality and hyponatremia; F41.9 Anxiety disorder, unspecified; M54.2 Cervicalgia; Z79.899 Other long term (current) drug therapy
CPT/HCPCS: 36415; 70450; 71045; 72125; 80048; 80076; 81001; 83605; 83735; 83880; 84145; 84436; 84443; 85025; 85027; 85610; 85652; 85730; 86140; 86308; 86617; 86664; 86665; 87040; 87389; 87798; 94760; 96361; 96365; 96367; 96375; 96376; 99284; J0696; J1170; J1885

== ENCOUNTER → 2021-03-05 | Outpatient (CLI) | payer OTHER ==
[~2021-03-05] MED LIST changes: +ALEV220T22 PO; +AMLO1TAB25 PO; +D31000TA2 PO; +DOXY100T PO; +DOXY100T27 PO; +FISH1000 PO; +HYDR-3715 PO; +IBUP1TAB6 PO; +LOSA25TA14 PO; +MULTCHW12 PO; +RISATAB3 PO
[2021-03-05 17:19] LABS: BASO # 0.1 10^3/uL (0.0-0.2); BASO % 0.6 % (0.0-1.0); EOS # 0.2 10^3/uL (0.0-0.5); EOS % 1.5 % (0.0-3.0); HEMATOCRIT 41.8 % (42.0-52.0); HEMOGLOBIN 13.8 g/dl (13.5-17.5); LYMPH # 3.3 10^3/uL (1.5-5.0); LYMPH % 34.4 % (24.0-44.0); MEAN CORPUSCULAR HEMOGLOBIN 30.3 pg (27.0-33.0); MEAN CORPUSCULAR VOLUME 91.9 fl (80.0-96.0); MONO # 0.6 10^3/uL (0.0-0.8); MONO % 6.2 % (2.0-8.0); NEUTROPHILS # 5.5 10^3/uL (1.5-8.5); NEUTROPHILS % 56.2 % (36.0-66.0); PLATELET COUNT, AUTOMATED 488 10^3/uL (150-450); RED BLOOD COUNT 4.55 10^6/uL (4.30-6.10); WHITE BLOOD COUNT 9.7 10^3/uL (4.0-10.0)
[2021-03-09 14:08] LABS: Lyme Disease IgG Ab 18 kDa Ban Absent (.); Lyme Disease IgG Ab 23 kDa Ban Absent (.); Lyme Disease IgG Ab 28 kDa Ban Absent (.); Lyme Disease IgG Ab 30 kDa Ban Absent (.); Lyme Disease IgG Ab 39 kDa Ban Absent (.); Lyme Disease IgG Ab 41 kDa Ban Present (.); Lyme Disease IgG Ab 45 kDa Ban Absent (.); Lyme Disease IgG Ab 58 kDa Ban Absent (.); Lyme Disease IgG Ab 66 kDa Ban Absent (.); Lyme Disease IgG Ab 93 kDa Ban Absent (.); Lyme Disease IgG West Blot Int Negative (.); Lyme Disease IgG/IgM Antibodie 1.72 ISR (0.00-0.90); Lyme Disease IgM Ab 23 kDa Ban Present (.); Lyme Disease IgM Ab 39 kDa Ban Present (.); Lyme Disease IgM Ab 41 kDa Ban Present (.); Lyme Disease IgM Ab Quantitati 8.84 index (0.00-0.79); Lyme Disease IgM West Blot Int Positive (.)
== END ==
LOC: M PLALAB 14:24
PROVIDERS: ATTEND Physician Assistant
DX: A93.8 Other specified arthropod-borne viral fevers (principal); R51.9 Headache, unspecified; R52 Pain, unspecified

== ENCOUNTER → 2021-03-16 | Outpatient (REF) | payer OTHER ==
[2021-03-16 13:48] LABS: BASO # 0.1 10^3/uL (0.0-0.2); EOS # 0.1 10^3/uL (0.0-0.5); HEMATOCRIT 43.1 % (42.0-52.0); HEMOGLOBIN 14.1 g/dl (13.5-17.5); LYMPH # 2.5 10^3/uL (1.5-5.0); LYMPH % 41.6 % (24.0-44.0); MEAN CORPUSCULAR HEMOGLOBIN 30.6 pg (27.0-33.0); MEAN CORPUSCULAR HGB CONC 32.7 g/dl (32.0-36.5); MEAN CORPUSCULAR VOLUME 93.5 fl (80.0-96.0); MONO # 0.5 10^3/uL (0.0-0.8); MONO % 7.7 % (2.0-8.0); NEUTROPHILS # 2.9 10^3/uL (1.5-8.5); NEUTROPHILS % 48.5 % (36.0-66.0); PLATELET COUNT, AUTOMATED 430 10^3/uL (150-450); RED BLOOD COUNT 4.61 10^6/uL (4.30-6.10)
== END ==
LOC: M SFHCADAM 10:35
PROVIDERS: ATTEND Family Medicine
DX: R50.9 Fever, unspecified (principal); A69.20 Lyme disease, unspecified

== ENCOUNTER → 2021-04-09 | Outpatient (REF) | payer OTHER ==
[2021-04-09 18:15] LABS: BASO # 0.1 10^3/uL (0.0-0.2); BASO % 0.8 % (0.0-1.0); EOS # 0.1 10^3/uL (0.0-0.5); EOS % 1.1 % (0.0-3.0); HEMATOCRIT 42.7 % (42.0-52.0); HEMOGLOBIN 14.2 g/dl (13.5-17.5); LYMPH # 2.5 10^3/uL (1.5-5.0); LYMPH % 40.3 % (24.0-44.0); MEAN CORPUSCULAR HEMOGLOBIN 30.7 pg (27.0-33.0); MEAN CORPUSCULAR HGB CONC 33.3 g/dl (32.0-36.5); MEAN CORPUSCULAR VOLUME 92.2 fl (80.0-96.0); MONO # 0.4 10^3/uL (0.0-0.8); MONO % 6.3 % (2.0-8.0); NEUTROPHILS # 3.2 10^3/uL (1.5-8.5); NEUTROPHILS % 51.3 % (36.0-66.0); PLATELET COUNT, AUTOMATED 389 10^3/uL (150-450); RED BLOOD COUNT 4.63 10^6/uL (4.30-6.10); WHITE BLOOD COUNT 6.2 10^3/uL (4.0-10.0)
[2021-04-09 18:41] LABS: ALBUMIN 3.9 GM/DL (3.2-5.2); ALT/SGPT 51 U/L (12-78); BILIRUBIN,TOTAL 0.5 MG/DL (0.2-1.0); BLOOD UREA NITROGEN 14 MG/DL (7-18); CARBON DIOXIDE LEVEL 26 MEQ/L (21-32); CHLORIDE LEVEL 106 MEQ/L (98-107); CREATININE FOR GFR 0.93 MG/DL (0.70-1.30); FREE T4 0.84 NG/DL (0.76-1.46); GLOMERULAR FILTRATION RATE > 60.0 (>60); GLUCOSE, FASTING 124 MG/DL (70-100); POTASSIUM SERUM 4.5 MEQ/L (3.5-5.1); SODIUM LEVEL 138 MEQ/L (136-145); THYROID STIMULATING HORMONE 0.834 uIU/ML (0.358-3.740); TOTAL PROTEIN 7.5 GM/DL (6.4-8.2)
== END ==
LOC: M SFHCADAM 12:13
PROVIDERS: ATTEND Family Medicine
DX: R00.2 Palpitations (principal); A69.20 Lyme disease, unspecified

== ENCOUNTER → 2021-05-05 | Outpatient (CLI) | payer OTHER ==
--- NOTE | 2021-05-05 11:46 | REP ---
INDICATION: PAIN IN THORACIC SPINE. COMPARISON: Chest 02/25/2021. TECHNIQUE: Three AP and lateral views thoracic spine. FINDINGS: There is no compression fracture or malalignment. There is normal thoracic kyphosis. There is minimal disc space narrowing and subchondral sclerosis at midthoracic disc levels. Posterior elements are intact. IMPRESSION: Minor degenerative disc changes midthoracic spine. <Electronically signed by Presley Gonzalez > 05/05/21 [id number]
== END ==
LOC: M PLAIMG 09:57
PROVIDERS: ATTEND Family Medicine
DX: M51.34 Other intervertebral disc degeneration, thoracic region (principal)

== ENCOUNTER → 2021-06-26 | Outpatient (REF) | payer OTHER | LOC: M LABDRWAD 16:27 | PROVIDERS: ATTEND Nurse Practitioner Family | DX: R00.2 Palpitations (principal) ==

== ENCOUNTER → 2021-11-12 | Outpatient (REF) | payer OTHER ==
[~2021-11-12] MED LIST changes: -D31000TA2 PO; +LOSA25TA13; +LOSA25TA13 PO; -LOSA25TA14; -LOSA25TA14 PO; +VITA100093 PO
[2021-11-12 12:34] LABS: BASO % 0.7 % (0.0-1.0); EOS # 0.1 10^3/uL (0.0-0.5); EOS % 1.3 % (0.0-3.0); LYMPH # 2.4 10^3/uL (1.5-5.0); LYMPH % 39.6 % (24.0-44.0); MEAN CORPUSCULAR HEMOGLOBIN 31.1 pg (27.0-33.0); MEAN CORPUSCULAR HGB CONC 34.9 g/dl (32.0-36.5); MEAN CORPUSCULAR VOLUME 89.2 fl (80.0-96.0); MONO # 0.5 10^3/uL (0.0-0.8); MONO % 7.8 % (2.0-8.0); NEUTROPHILS # 3.1 10^3/uL (1.5-8.5); NEUTROPHILS % 50.3 % (36.0-66.0); PLATELET COUNT, AUTOMATED 346 10^3/uL (150-450); RED BLOOD COUNT 4.82 10^6/uL (4.30-6.10); WHITE BLOOD COUNT 6.1 10^3/uL (4.0-10.0)
[2021-11-12 13:12] LABS: ERYTHROCYTE SEDIMENTATION RATE 6 mm/hr (0-15)
[2021-11-12 13:55] LABS: ALBUMIN 4.3 GM/DL (3.2-5.2); ALT/SGPT 50 U/L (12-78); BILIRUBIN,TOTAL 0.4 MG/DL (0.2-1.0); BLOOD UREA NITROGEN 12 MG/DL (7-18); CALCIUM LEVEL 9.4 MG/DL (8.5-10.1); CARBON DIOXIDE LEVEL 28 MEQ/L (21-32); CHLORIDE LEVEL 104 MEQ/L (98-107); CREATININE FOR GFR 1.01 MG/DL (0.70-1.30); FREE T4 0.76 NG/DL (0.76-1.46); GLOMERULAR FILTRATION RATE > 60.0 (>60); GLUCOSE, FASTING 104 MG/DL (70-100); POTASSIUM SERUM 4.2 MEQ/L (3.5-5.1); RHEUMATOID FACTOR QUANT < 10.0 IU/ML (<15.0); SODIUM LEVEL 137 MEQ/L (136-145); TOTAL PROTEIN 7.6 GM/DL (6.4-8.2)
[2021-11-14 16:21] LABS: ANTINUCLEAR ANTIBODIES DIRECT Negative (Negative); VITAMIN D 1,25 DIHYDROXY 32.8 pg/mL (19.9-79.3)
== END ==
LOC: M SFHCADAM 11:27
PROVIDERS: ATTEND Family Medicine
DX: R00.2 Palpitations (principal); M25.50 Pain in unspecified joint; E55.9 Vitamin D deficiency, unspecified

== ENCOUNTER → 2021-11-28 | Outpatient (REF) | payer OTHER | LOC: M LAB REF 13:18 | PROVIDERS: ATTEND Physician Assistant Medical | DX: J06.9 Acute upper respiratory infection, unspecified (principal); R50.9 Fever, unspecified ==

== ENCOUNTER → 2021-12-03 | Outpatient (REF) | payer OTHER ==
[2021-12-03 20:07] LABS: BASO # 0.1 10^3/uL (0.0-0.2); BASO % 0.2 % (0.0-1.0); EOS # 0.1 10^3/uL (0.0-0.5); EOS % 0.5 % (0.0-3.0); HEMATOCRIT 40.4 % (42.0-52.0); LYMPH # 3.5 10^3/uL (1.5-5.0); LYMPH % 14.7 % (24.0-44.0); MEAN CORPUSCULAR HEMOGLOBIN 31.5 pg (27.0-33.0); MEAN CORPUSCULAR HGB CONC 34.7 g/dl (32.0-36.5); MEAN CORPUSCULAR VOLUME 90.8 fl (80.0-96.0); MONO # 1.3 10^3/uL (0.0-0.8); MONO % 5.5 % (2.0-8.0); NEUTROPHILS # 18.8 10^3/uL (1.5-8.5); NEUTROPHILS % 78.6 % (36.0-66.0); PLATELET COUNT, AUTOMATED 319 10^3/uL (150-450); RED BLOOD COUNT 4.45 10^6/uL (4.30-6.10); WHITE BLOOD COUNT 23.9 10^3/uL (4.0-10.0)
== END ==
LOC: M LAB REF 16:13
PROVIDERS: ATTEND Physician Assistant
DX: R53.83 Other fatigue (principal)

== ENCOUNTER → 2021-12-09 | Outpatient (REF) | payer OTHER ==
[2021-12-09 16:30] LABS: HEMATOCRIT 45.6 % (42.0-52.0); HEMOGLOBIN 15.4 g/dl (13.5-17.5); MEAN CORPUSCULAR HEMOGLOBIN 30.6 pg (27.0-33.0); MEAN CORPUSCULAR HGB CONC 33.8 g/dl (32.0-36.5); MEAN CORPUSCULAR VOLUME 90.5 fl (80.0-96.0); PLATELET COUNT, AUTOMATED 294 10^3/uL (150-450); RED BLOOD COUNT 5.04 10^6/uL (4.30-6.10)
[2021-12-09 16:42] LABS: ALBUMIN 4.2 GM/DL (3.2-5.2); ALT/SGPT 62 U/L (12-78); BILIRUBIN,DIRECT 0.1 MG/DL (0.0-0.2); BILIRUBIN,TOTAL 0.4 MG/DL (0.2-1.0); BLOOD UREA NITROGEN 16 MG/DL (7-18); CALCIUM LEVEL 9.4 MG/DL (8.5-10.1); CARBON DIOXIDE LEVEL 32 MEQ/L (21-32); CHLORIDE LEVEL 100 MEQ/L (98-107); CREATININE FOR GFR 1.24 MG/DL (0.70-1.30); GLOMERULAR FILTRATION RATE > 60.0 (>60); GLUCOSE, FASTING 131 MG/DL (70-100); SODIUM LEVEL 136 MEQ/L (136-145); TOTAL PROTEIN 7.9 GM/DL (6.4-8.2)
[2021-12-09 18:05] LABS: EOSINOPHILS 2 % (0-3); LYMPHOCYTES 41 % (16-44); MONOCYTES 2 % (0-5); NEUTROPHILS 51 % (28-66)
[2021-12-09 18:06] LABS: PLATELET ESTIMATE NORMAL (NORMAL)
[2021-12-09 18:38] LABS: ERYTHROCYTE SEDIMENTATION RATE 22 mm/hr (0-15)
== END ==
LOC: M SFHCADAM 14:52
PROVIDERS: ATTEND Family Medicine
DX: R50.9 Fever, unspecified (principal); D72.829 Elevated white blood cell count, unspecified; B34.2 Coronavirus infection, unspecified

== ENCOUNTER → 2021-12-09 | Outpatient (CLI) | payer OTHER | LOC: M ADAMS 14:44 | PROVIDERS: ATTEND Family Medicine | DX: R07.9 Chest pain, unspecified (principal) ==

== ENCOUNTER → 2022-01-15 | Outpatient (REF) | payer OTHER | LOC: M SFHCADAM 14:20 | PROVIDERS: ATTEND Family Medicine | DX: Z86.19 Personal history of other infectious and parasitic diseases (principal) ==

== ENCOUNTER → 2022-01-15 | Outpatient (CLI) | payer OTHER | LOC: M ADAMS 14:27 | PROVIDERS: ATTEND Family Medicine | DX: M54.50 Low back pain, unspecified (principal) ==

== ENCOUNTER → 2022-01-27 | Outpatient (CLI) | payer OTHER | LOC: M WHC 08:44 | PROVIDERS: ATTEND Family Medicine | DX: R10.32 Left lower quadrant pain (principal) ==

== ENCOUNTER → 2022-02-11 | Outpatient (CLI) | payer OTHER ==
[2022-02-11 14:05] LABS: BASO # 0.1 10^3/uL (0.0-0.2); BASO % 0.9 % (0.0-1.0); EOS # 0.1 10^3/uL (0.0-0.5); EOS % 1.9 % (0.0-3.0); HEMATOCRIT 42.9 % (42.0-52.0); HEMOGLOBIN 14.3 g/dl (13.5-17.5); LYMPH # 2.1 10^3/uL (1.5-5.0); MEAN CORPUSCULAR HEMOGLOBIN 31.4 pg (27.0-33.0); MEAN CORPUSCULAR HGB CONC 33.3 g/dl (32.0-36.5); MEAN CORPUSCULAR VOLUME 94.1 fl (80.0-96.0); MONO # 0.4 10^3/uL (0.0-0.8); MONO % 6.5 % (2.0-8.0); NEUTROPHILS # 2.8 10^3/uL (1.5-8.5); NEUTROPHILS % 51.5 % (36.0-66.0); PLATELET COUNT, AUTOMATED 315 10^3/uL (150-450); RED BLOOD COUNT 4.56 10^6/uL (4.30-6.10); WHITE BLOOD COUNT 5.4 10^3/uL (4.0-10.0)
[2022-02-11 14:20] LABS: C REACTIVE PROTEIN QUANTITATIV < 0.30 MG/DL (0.00-0.30); RHEUMATOID FACTOR QUANT < 10.0 IU/ML (<15.0)
[2022-02-11 14:29] LABS: ERYTHROCYTE SEDIMENTATION RATE 6 mm/hr (0-15)
== END ==
LOC: M PLALAB 11:11
PROVIDERS: ATTEND Internal Medicine Infectious Disease
DX: R50.9 Fever, unspecified (principal)

== ENCOUNTER → 2022-06-04 | Outpatient (REF) | LOC: M RAD 15:39 | PROVIDERS: ATTEND Internal Medicine | DX: M54.50 Low back pain, unspecified (principal) ==

== ENCOUNTER → 2022-06-04 | Outpatient (CLI) | payer OTHER | LOC: M RAD 15:32 | PROVIDERS: ATTEND Physician Assistant | DX: M54.40 Lumbago with sciatica, unspecified side (principal) ==

== ENCOUNTER → 2022-07-22 | Outpatient (CLI) | payer OTHER ==
[2022-07-22 15:42] LABS: ALBUMIN 4.1 G/DL (3.2-5.2); ALKALINE PHOSPHATASE 60 U/L (46-116); ALT/SGPT 32 U/L (7.0-40); AST/SGOT 20 U/L (<34); BILIRUBIN,TOTAL 0.4 MG/DL (0.3-1.2); BLOOD UREA NITROGEN 12 MG/DL (9-23); CALCIUM LEVEL 8.9 MG/DL (8.5-10.1); CARBON DIOXIDE LEVEL 29 MMOL/L (20-31); CHLORIDE LEVEL 103 MMOL/L (98-107); CREATININE FOR GFR 0.83 MG/DL (0.70-1.30); GLOMERULAR FILTRATION RATE > 60.0 (>60); GLUCOSE, FASTING 118 MG/DL (60-100); POTASSIUM SERUM 4.3 MMOL/L (3.5-5.1); RHEUMATOID FACTOR QUANT < 3.5 IU/ML (<14); SODIUM LEVEL 139 MMOL/L (136-145); TOTAL PROTEIN 7.2 G/DL (5.7-8.2)
[2022-07-22 15:43] LABS: FREE T4 0.98 NG/DL (0.89-1.76); FREE THYROXINE INDEX 2.9 % (1.4-3.8); T UPTAKE 36.8 % (22.5-37.0); THYROXINE (T4) 7.9 UG/DL (4.5-10.9); VITAMIN B12 LEVEL 422 PG/ML (211-911)
[2022-07-22 15:44] LABS: THYROID STIMULATING HORMONE 1.089 uIU/ML (0.55-4.78); TOTAL 25(OH) VITAMIN D 31.7 NG/ML (20.0-100.0)
[2022-07-22 15:58] LABS: CPK CREATINE PHOSPHOKINASE 244 U/L (46-171); FOLATE > 24.00 NG/ML (>5.4)
[2022-07-22 16:15] LABS: BASO % 0.7 % (0.0-1.0); EOS # 0.1 10^3/uL (0.0-0.5); EOS % 1.2 % (0.0-3.0); HEMATOCRIT 46.1 % (42.0-52.0); HEMOGLOBIN 15.3 g/dl (13.5-17.5); LYMPH # 1.9 10^3/uL (1.5-5.0); MEAN CORPUSCULAR HEMOGLOBIN 31.4 pg (27.0-33.0); MEAN CORPUSCULAR HGB CONC 33.2 g/dl (32.0-36.5); MEAN CORPUSCULAR VOLUME 94.5 fl (80.0-96.0); MONO # 0.5 10^3/uL (0.0-0.8); MONO % 8.6 % (2.0-8.0); NEUTROPHILS # 3.3 10^3/uL (1.5-8.5); NEUTROPHILS % 57.3 % (36.0-66.0); PLATELET COUNT, AUTOMATED 320 10^3/uL (150-450); RED BLOOD COUNT 4.88 10^6/uL (4.30-6.10); WHITE BLOOD COUNT 5.8 10^3/uL (4.0-10.0)
[2022-07-22 16:45] LABS: ERYTHROCYTE SEDIMENTATION RATE 3 mm/hr (0-15)
== END ==
LOC: M PLALAB 09:37
PROVIDERS: ATTEND Psychiatry & Neurology Neurology
DX: E07.9 Disorder of thyroid, unspecified (principal); E55.9 Vitamin D deficiency, unspecified; M79.10 Myalgia, unspecified site; R20.0 Anesthesia of skin

== ENCOUNTER → 2022-11-18 | Outpatient (CLI) | payer OTHER ==
[2022-11-18 16:25] LABS: BASO # 0.1 10^3/uL (0.0-0.2); BASO % 0.7 % (0.0-1.0); C REACTIVE PROTEIN QUANTITATIV < 0.40 MG/DL (<1.0); EOS # 0.1 10^3/uL (0.0-0.5); EOS % 1.6 % (0.0-3.0); HEMATOCRIT 42.7 % (42.0-52.0); HEMOGLOBIN 14.2 g/dl (13.5-17.5); LYMPH # 3.1 10^3/uL (1.5-5.0); LYMPH % 39.8 % (24.0-44.0); MEAN CORPUSCULAR HEMOGLOBIN 31.3 pg (27.0-33.0); MEAN CORPUSCULAR HGB CONC 33.3 g/dl (32.0-36.5); MEAN CORPUSCULAR VOLUME 94.1 fl (80.0-96.0); MONO # 0.5 10^3/uL (0.0-0.8); MONO % 6.8 % (2.0-8.0); NEUTROPHILS # 3.9 10^3/uL (1.5-8.5); PLATELET COUNT, AUTOMATED 320 10^3/uL (150-450); RED BLOOD COUNT 4.54 10^6/uL (4.30-6.10); WHITE BLOOD COUNT 7.7 10^3/uL (4.0-10.0)
[2022-11-18 16:27] LABS: ALBUMIN 4.3 G/DL (3.2-5.2); ALKALINE PHOSPHATASE 65 U/L (46-116); ALT/SGPT 27 U/L (7.0-40); AST/SGOT 19 U/L (<34); BILIRUBIN,TOTAL 0.4 MG/DL (0.3-1.2); BLOOD UREA NITROGEN 16 MG/DL (9-23); CARBON DIOXIDE LEVEL 29 MMOL/L (20-31); CHLORIDE LEVEL 102 MMOL/L (98-107); CREATININE FOR GFR 0.93 MG/DL (0.70-1.30); GLOMERULAR FILTRATION RATE > 60.0 (>60); GLUCOSE, FASTING 92 MG/DL (60-100); POTASSIUM SERUM 4.4 MMOL/L (3.5-5.1); SODIUM LEVEL 137 MMOL/L (136-145); TOTAL PROTEIN 7.3 G/DL (5.7-8.2)
[2022-11-18 16:29] LABS: URIC ACID 7.1 MG/DL (3.7-9.2)
[2022-11-18 16:50] LABS: ERYTHROCYTE SEDIMENTATION RATE 9 mm/hr (0-15)
== END ==
LOC: M ADAMS 11:41
PROVIDERS: ATTEND Internal Medicine Rheumatology
DX: M25.50 Pain in unspecified joint (principal)

== ENCOUNTER → 2023-03-17 | Outpatient (REF) | payer OTHER ==
[~2023-03-17] MED LIST changes: +LORA1TAB23; -LORA1TAB4
[2023-03-17 14:32] LABS: BASO # 0.1 10^3/uL (0.0-0.2); BASO % 0.8 % (0.0-1.0); EOS # 0.1 10^3/uL (0.0-0.5); EOS % 1.7 % (0.0-3.0); HEMATOCRIT 45.1 % (42.0-52.0); HEMOGLOBIN 14.9 g/dl (13.5-17.5); LYMPH # 2.4 10^3/uL (1.5-5.0); LYMPH % 38.4 % (24.0-44.0); MEAN CORPUSCULAR HEMOGLOBIN 30.8 pg (27.0-33.0); MEAN CORPUSCULAR VOLUME 93.2 fl (80.0-96.0); MONO # 0.4 10^3/uL (0.0-0.8); MONO % 5.8 % (2.0-8.0); NEUTROPHILS # 3.4 10^3/uL (1.5-8.5); NEUTROPHILS % 53.1 % (36.0-66.0); PLATELET COUNT, AUTOMATED 349 10^3/uL (150-450); RED BLOOD COUNT 4.84 10^6/uL (4.30-6.10); WHITE BLOOD COUNT 6.4 10^3/uL (4.0-10.0)
[2023-03-17 15:04] LABS: C REACTIVE PROTEIN QUANTITATIV < 0.40 MG/DL (<1.0)
[2023-03-17 15:06] LABS: BLOOD UREA NITROGEN 12 MG/DL (9-23); CALCIUM LEVEL 9.4 MG/DL (8.5-10.1); CARBON DIOXIDE LEVEL 27 MMOL/L (20-31); CHLORIDE LEVEL 103 MMOL/L (98-107); CHOLESTEROL LEVEL 142 MG/DL (<200); CHOLESTEROL RISK RATIO 3.85 (<5); CREATININE FOR GFR 0.92 MG/DL (0.70-1.30); GLOMERULAR FILTRATION RATE > 60.0 (>60); GLUCOSE, FASTING 104 MG/DL (60-100); HDL CHOLESTEROL 36.8 MG/DL (>40); LDL CHOLESTEROL 89.6 MG/DL (<100); NON-HDL-C 105.2 MG/DL; POTASSIUM SERUM 4.6 MMOL/L (3.5-5.1); SODIUM LEVEL 140 MMOL/L (136-145); TRIGLYCERIDES LEVEL 78 MG/DL (<150)
[2023-03-17 15:17] LABS: ERYTHROCYTE SEDIMENTATION RATE 10 mm/hr (0-15)
[2023-03-18 17:07] LABS: IgG P18 AB Absent (.); IgG P23 AB Absent (.); IgG P28 AB Absent (.); IgG P30 AB Absent (.); IgG P39 AB Absent (.); IgG P41 AB Present (.); IgG P45 AB Absent (.); IgG P66 AB Absent (.); IgG P93 AB Absent (.); IgM P23 AB Absent (.); IgM P39 AB Absent (.); IgM P41 AB Present (.); LYME IgG WB INTERPRETATION Negative (.); LYME IgM WB INTERPRETATION Negative (.)
== END ==
LOC: M SFHCADAM 11:29
PROVIDERS: ATTEND Physician Assistant
DX: Z13.220 Encounter for screening for lipoid disorders (principal); I10 Essential (primary) hypertension; W57.XXXA Bitten or stung by nonvenomous insect and other nonvenomous arthropods, initial encounter; R30.0 Dysuria; X58.XXXA Exposure to other specified factors, initial encounter; Y92.89 Other specified places as the place of occurrence of the external cause; Y93.89 Activity, other specified; Y99.8 Other external cause status

== ENCOUNTER → 2023-03-17 | Outpatient (REF) | payer OTHER | LOC: M SFHCADAM 03-16 12:31 | PROVIDERS: ATTEND Physician Assistant | DX: R30.0 Dysuria (principal) ==

== ENCOUNTER → 2023-06-08 | Outpatient (REF) | payer OTHER ==
[2023-06-08 13:12] LABS: BASO # 0.1 10^3/uL (0.0-0.2); BASO % 0.7 % (0.0-1.0); EOS # 0.1 10^3/uL (0.0-0.5); EOS % 2.1 % (0.0-3.0); HEMATOCRIT 43.6 % (42.0-52.0); HEMOGLOBIN 14.6 g/dl (13.5-17.5); LYMPH # 2.5 10^3/uL (1.5-5.0); LYMPH % 36.8 % (24.0-44.0); MEAN CORPUSCULAR HEMOGLOBIN 31.1 pg (27.0-33.0); MEAN CORPUSCULAR HGB CONC 33.5 g/dl (32.0-36.5); MONO # 0.5 10^3/uL (0.0-0.8); MONO % 7.3 % (2.0-8.0); NEUTROPHILS # 3.6 10^3/uL (1.5-8.5); PLATELET COUNT, AUTOMATED 358 10^3/uL (150-450); RED BLOOD COUNT 4.69 10^6/uL (4.30-6.10); WHITE BLOOD COUNT 6.8 10^3/uL (4.0-10.0)
[2023-06-08 13:23] LABS: BLOOD UREA NITROGEN 12 MG/DL (9-23); CALCIUM LEVEL 9.5 MG/DL (8.5-10.1); CARBON DIOXIDE LEVEL 30 MMOL/L (20-31); CHLORIDE LEVEL 101 MMOL/L (98-107); CREATININE FOR GFR 0.81 MG/DL (0.70-1.30); GLOMERULAR FILTRATION RATE > 60.0 (>60); GLUCOSE, FASTING 103 MG/DL (60-100); POTASSIUM SERUM 4.2 MMOL/L (3.5-5.1); SODIUM LEVEL 136 MMOL/L (136-145)
[2023-06-08 14:15] LABS: GC DNA AMPLIFICATION NEGATIVE (NEGATIVE)
[2023-06-09 14:09] LABS: IgG P18 AB Absent (.); IgG P23 AB Absent (.); IgG P28 AB Absent (.); IgG P30 AB Absent (.); IgG P39 AB Absent (.); IgG P41 AB Present (.); IgG P45 AB Absent (.); IgG P66 AB Absent (.); IgG P93 AB Absent (.); IgM P23 AB Absent (.); IgM P39 AB Absent (.); IgM P41 AB Absent (.); LYME IgG WB INTERPRETATION Negative (.); LYME IgM WB INTERPRETATION Negative (.)
== END ==
LOC: M SFHCADAM 09:45
PROVIDERS: ATTEND Physician Assistant Medical
DX: R51.9 Headache, unspecified (principal); L29.3 Anogenital pruritus, unspecified; N48.89 Other specified disorders of penis; R53.82 Chronic fatigue, unspecified

== ENCOUNTER → 2023-08-19 | Outpatient (REF) | payer OTHER | LOC: M SFHCPLAZ 15:24 | PROVIDERS: ATTEND Student in an Organized Health Care Education/Training Program | DX: R53.81 Other malaise (principal) ==